=== PATIENT | male | born 1995 | race Caucasian/White ===

== ENCOUNTER 2020-11-18 16:49 | Inpatient (IN) | payer SELFPAY ==
[2020-11-18 17:00] VITALS: BP 126/77; PULSE 93; RESP 18; TEMP 36.8; O2SAT 99; BMI 25.0
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
[2020-11-18 17:51] LABS: Add Urine Microscopic? NO
[2020-11-18 17:57] LABS: Basophils # 0.1 10^3/uL (0.0-0.1); Basophils % 0.8 %; Eosinophils # 0.1 10^3/uL (0.0-0.8); Eosinophils % 0.8 %; Hematocrit 46.3 % (42.0-52.0); Hemoglobin 15.7 g/dL (11.7-16.6); Lymphocytes # 1.8 10^3/uL (0.8-4.8); Lymphocytes % 22.8 %; Mean Corpuscular HGB Conc 33.9 g/dL (30.0-36.0); Mean Corpuscular Volume 91.5 fL (80-94); Mean Platelet Volume 10.5 fL (7.4-10.4); Monocytes # 0.4 10^3/uL (0.2-0.9); Monocytes % 5.5 %; Neutrophils # 5.47 10^3/uL (1.8-7.7); Neutrophils % 69.8 %; Nucleated Red Blood Cells % 0 %; Platelet Count 218 10^3/cmm (130-400); Red Blood Count 5.06 10^6/uL (4.1-5.3); Red Cell Distribution Width 12.1 % (12.1-15.1); White Blood Count 7.8 10^3/uL (4.0-10.0)
--- NOTE | 2020-11-18 18:05 | PC.NURSE ---
pt denies SI. states hopelessness. pt also states he unexpectedly lost his mother to illness approximately 3 months ago.
[2020-11-18 18:11] LABS: Amphetamines Screen Urine Negative (Negative); Barbiturates Screen Urine Negative (Negative); Benzodiazepines Screen Urine Negative (Negative); Cocaine Screen Urine Negative (Negative); Opiate Screen Urine Negative (Negative); PCP Screen Urine Negative (Negative); THC Screen Urine Negative (Negative)
[2020-11-18 18:18] LABS: Bilirubin Urine Neg (Negative); Blood Urine Neg (Negative); Glucose Urine UA Norm (Normal); Ketones Urine Negative (Negative); Leukocyte Esterase Urine Negative (Negative); Nitrate Urine Negative (Negative); Protein Urine Neg (Negative); Sulfosalicylic Acid Urine Negative (Negative); Urine Appearance Clear (CLEAR); Urine Color Yellow (Yellow); Urobilinogen Urine 1 mg/dL (Negative); pH Urine 8 (5-7)
[2020-11-18 18:20] LABS: Alanine Aminotransferase 14 U/L (0-41); Albumin Level 4.5 g/dL (3.5-5.2); Alkaline Phosphatase 68 IU/L (40-130); Anion Gap 12.5 (5-19); Aspartate Amino Transferase 24 U/L (0-40); Blood Urea Nitrogen 10 mg/dL (6-20); Calcium 9.3 mg/dL (8.5-10.5); Carbon Dioxide 28 mmol/L (22-29); Chloride 102 mmol/L (98-107); Globulin 2.6 g/dL (1.3-4.6); Glucose 109 mg/dL (65-115); Osmolality Calculated 288 mOsm/kg (285-295); Potassium 3.5 mmol/L (3.5-5.1); Sodium 139 mmol/L (136-145); Total Bilirubin 0.4 mg/dL (0.15-1.2); Total Protein 7.1 g/dL (6.6-8.7)
[2020-11-18 18:28] LABS: Acetaminophen < 5.0 ug/mL (10-30); Salicylate < 0.3 mg/dL (3-10)
[2020-11-18 18:34] VITALS: BP 164/83; PULSE 82; RESP 18; TEMP 37.4; O2SAT 100
[2020-11-18] MEDS: nicotine 2 mg Gum BUCCAL (19:50)
--- NOTE | 2020-11-18 19:56 | PC.NURSE ---
Pt requested nicotine patch. stated he was told in ER that he get one before he was brought to unit, but did not receive one. Pt was advised that it is not recommended this late in the evening due to possible side effect of night terrors, but he is able to have nicorette gum. Pt voiced understanding and requested the gum. Nicorette gum given at this time.
[2020-11-18 20:11] VITALS: BP 117/98; PULSE 83; RESP 20; TEMP 36.6; O2SAT 98
[2020-11-19 06:00] VITALS: BP 98/60; PULSE 77; RESP 20; TEMP 37.2; O2SAT 96
[2020-11-19] MEDS: nicotine 2 mg Gum BUCCAL ×4 (10:19→21:03)
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
[2020-11-19] MEDS: citalopram 20 mg Tablet 10 MG PO (13:02)
--- NOTE | 2020-11-19 13:07 | PC.NURSE ---
Patient requested Nicorette Gum for smoking cessation and med was administered. CLARISSA HAWKINS
[2020-11-19 14:00] VITALS: BP 107/58; PULSE 81; RESP 18; TEMP 36.8; O2SAT 96
--- NOTE | 2020-11-19 19:31 | PM.NPTHER ---
NPU Therapy Progress Note Therapy Progress Note Date: 11/19/20 Time In: 18:15 Time Out: 18:30 Symptoms Reported: depression, irritability Mood: stable Progress Note: STUDENT SUCCESS COACH approached Zafar in the dayroom and he is agreeable to speak. Zafar describes events leading up to his hospitalization as an escalation in his irritability to the point he felt unsafe. He describes ongoing divorce granados causing him stress and recently learned he would have to travel back to his previous state for court. He is attempting to move on with a new relationship but feels held back due to legal issues. He has previous therapy tx; however, COVID lockdown interrupted his tx. He reports making progress before COVID adn after missing some apts. realized he was going down hill . He also reports grief/loss emotions over the of his mother. He is planning to stay in the [place], [place] area and has an apt. this Tuesday to follow up for outpatient mental health services. Intervention: STUDENT SUCCESS COACH listened and provided support. STUDENT SUCCESS COACH educated about the triggers of stress with depression/anxiety sx. He was praised for seeking help when he did. STUDENT SUCCESS COACH educated on [facility] availability and provided her contact card. Zafar was thankful for the information. Reported Goals Before Discharge: stabilize on medication to be discharged and see his father who lives in [place].
[2020-11-19 19:51] VITALS: BP 133/84; PULSE 80; RESP 17; TEMP 36.8; O2SAT 97
--- NOTE | 2020-11-19 22:31 | PC.NURSE ---
PM assessment Heart/lung sounds are WNL, V/S are WNL, pt is calm and talkative with nursing staff. Pt denies pain, denies SI/HI, Denies AH/VH. Pt thought process and verbal responses are appropriate. Pt discussed trigger for feeling hopeless as the recent passing of his mother in September, pending divorce proceedings in which he is representing himself in, and the custody granados that is coming with this divorce. Pt reports a new relationship is strained due to the divorce proceedings being delayed several times and being helpless to change this. Pt stated, I came here to get on some medications, but I am really stable. pt requested nursing staff to note that he feels stable and ready to go home. Pt states he has a plan to follow up with the [facility] on discharge. Pt reports no side effects from new medication Celexa, that he started today.Educated on medication compliance and the time it takes to become therapeutic. Pt verbalized understanding.
[2020-11-20 06:00] VITALS: BP 102/65; PULSE 88; RESP 16; TEMP 36.3; O2SAT 97
--- NOTE | 2020-11-20 06:08 | PC.NURSE ---
slept well pt slept well, no prn medication given. Cooperative all evening with staff.
[2020-11-20] MEDS: nicotine 2 mg Gum BUCCAL (07:46)
[2020-11-20] MEDS: citalopram 20 mg Tablet 10 MG PO (07:50)
--- NOTE | 2020-11-20 09:40 | P.DS_ITS ---
Diagnoses at Discharge Discharge Diagnosis (1) Depressive disorder: Status: Acute (2) Bereavement: Status: Acute Reason for Visit Reason for Visit: SI Hospital Course Hospital Course 25-year-old male with unclear past psychiatric history that reports recent counseling for depressive symptoms with recent loss of family member presented to the emergency department complaining of worsening hopelessness and depressive symptoms in the context of multiple life stressors. Patient continued to report significant depressive symptoms at the time of initial evaluation was started on citalopram 10 mg daily which he tolerated well with no reports of any medication side effects. Patient quickly reconstituted and reported significant improvement in his depressive symptoms as well as no subsequent complaints of hopelessness. Patient participated in unit activities to include group sessions, unit milieu with no reports of any behavioral disturbances. Patient was not suicidal throughout his hospital stay and was not suicidal at the time of discharge and did not appear to pose an imminent threat of harm to self or others. Low to moderate risk of harm given no current suicidal ideation, no past history of suicidal ideation or suicide attempts or self-harm behavior as well as no current psychiatric symptoms although patient's risk may be elevated if he uses substances or is noncompliant with post discharge follow-up care leading to unexpected, impulsive behavior. Risk mitigation included psychiatric hospitalization for observation, medication stabilization, coordination for post discharge care as well as recommendation to abstain from the use of alcohol and substances. Patient was able to communicate his understanding of the need to abstain from the use of any alcohol or substances while taking psychiatric medications as well as need for compliance with his medication, medication management and counseling follow-up in order to further mitigate his risk of harm to self and others. Involuntary Hold Information 96 Hour Hold: 96 Hour Involuntary Admission: No Mental Status Exam MSE Comments: Sitting in the day room, appropriately groomed and dressed, wearing glasses, calm, cooperative, polite, good eye contact Psychomotor activity is neither increased or decreased, no agitation Speech is normal rate and volume, spontaneous, clear articulation, not pressured I feel good, full range of affect, not labile Alert and oriented to person, place, time, situation Memory and concentration appear to be intact per interview Thought process, linear, no flight of ideas, no looseness of associations Thought content, no delusions, no hallucinations, no suicidal homicidal ideation Insight and judgment appear to be intact Discharge Data Vitals: Last Vital Signs Temp 97.4 F L 11/20/20 06:00 Pulse 88 03/18/21 06:00 Resp 16 11/20/20 06:00 BP 102/65 11/20/20 06:00 Pulse Ox 97 11/20/20 06:00 Discharge Plan Discharge Patient Disposition: Home Condition: Stable Prescriptions: New citalopram 20 mg Tablet 10 mg PO DAILY Qty: 30 RF: 0 Discharge Orders: Discharge Order (Routine); Ordered 11/20/20 Ordered By: Nicki Jackson Referrals: Enma García [Therapist] - 11/21/20 8:00 am (Clinical Assessment with Behavioral Health Care This will be done in person) Discharge Diet: Regular Discharge Activity: Resume usual activity Patient Instructions: Citalopram (By mouth), Depression (DC) Discharge Attestations NPU Time Spent in Discharge Care*: greater than 30 min Status at Discharge: Cognitive status at discharge: cognitively intact , Behavioral status at discharge: cooperative , Functional status at discharge: independent ambulation Overall status at discharge: patient is back to baseline Coding Level of Care Code Acute [employer] for [employer] Diagnoses Depressive disorder F32.9 Bereavement Z63.4
[2020-11-20 09:41] VITALS: BP 102/65; PULSE 88; RESP 16; TEMP 36.3; O2SAT 97
== END 2020-11-20 10:42 | disposition home or self-care (01) | DRG 881 ==
LOC: ER 17:12 → NP 18:27
PROVIDERS: Admitting Provider Psychiatry & Neurology Psychiatry; Emergency Provider Physician Assistant; Visit Provider Psychiatry & Neurology Psychiatry
DX: F32.9 Major depressive disorder, single episode, unspecified (principal); Z63.4 Disappearance and death of family member
CPT/HCPCS: 80053; 80306; 80307; 81003; 85025; 99285